=== PATIENT | male | born 1925 | race Caucasian/White ===

== ENCOUNTER → 2017-04-09 | Outpatient (CLI) | payer MEDICARE | LOC: CT 07:54 | DX: I71.01 Dissection of thoracic aorta (principal); R93.8 Abnormal findings on diagnostic imaging of other specified body structures | CPT/HCPCS: 75635; J7050; Q9963 ==

== ENCOUNTER → 2017-04-10 | Outpatient (CLI) | payer MEDICARE | LOC: HEART 5 08:00 | DX: R00.2 Palpitations (principal); I51.9 Heart disease, unspecified | CPT/HCPCS: 93306 ==

== ENCOUNTER → 2017-05-11 | Outpatient (CLI) | payer MEDICARE | LOC: HEART 5 07:53 | DX: I20.8 Other forms of angina pectoris (principal) | CPT/HCPCS: 78452; A9502; J2785 ==